=== PATIENT | female | born 1935 | race Caucasian/White ===

== ENCOUNTER → 2017-01-06 | Outpatient (CLI) | payer OTHER ==
--- NOTE | 2017-01-06 12:30 | RAD ---
HISTORY: Preop. Study: PA and lateral chest. Comparison: None. Findings: The trachea is midline. The cardiac silhouette is unremarkable. Left chest Port-A-Cath. The lungs a re clear without focal infiltrate or effusion. Surgical hardware is seen overlying the lower thorac ic/upper lumbar spine. The hardware appears intact. Diffuse osteopenia. Multiple compression fractur es are seen in the visualized spine. No acute osseous abnormality. IMPRESSION: 1. No acute cardiopulmonary disease. Reported By:
[2017-01-06 12:46] LABS: BASOPHILS % (AUTO) 0.5 % (0.2-1.0); EOSINOPHILS # (AUTO) 0.1 x10^3/uL (0.0-0.2); EOSINOPHILS % (AUTO) 1.2 % (0.9-2.9); HEMATOCRIT 30.6 % (36.0-47.0); HEMOGLOBIN 10.4 g/dL (12.0-16.0); LYMPHOCYTES # (AUTO) 1.6 X10^3/uL (1.3-2.9); LYMPHOCYTES % (AUTO) 27.1 % (21.0-51.0); MEAN CORPUSCULAR HEMOGLOBIN 32.5 pg (27.0-34.0); MEAN CORPUSCULAR HGB CONC 33.9 g/dL (33.0-35.0); MONOCYTES # (AUTO) 0.5 x10^3/uL (0.3-0.8); MONOCYTES % (AUTO) 9.1 % (0.0-13.0); NEUTROPHILS # (AUTO) 3.7 x10^3/uL (2.2-4.8); NEUTROPHILS % (AUTO) 62.1 % (42.0-75.0); PLATELET COUNT 363 X10^3/uL (150.0-450.0); RED BLOOD COUNT 3.18 X10^6/uL (3.5-5.4); RED CELL DISTRIBUTION WIDTH 13.3 % (11.6-16.5)
[2017-01-06 12:47] LABS: BILIRUBIN,URINE NEGATIVE (NEGATIVE); BLOOD/HEMOGLOBIN,URINE 4+ (NEGATIVE); GLUCOSE, URINE NEGATIVE (NEGATIVE); KETONES,URINE NEGATIVE (NEGATIVE); LEUKOCYTE ESTERASE ,URINE 1+ (NEGATIVE); NITRITES,URINE NEGATIVE (NEGATIVE); PROTEIN,URINE NEGATIVE (NEGATIVE); UROBILINOGEN,URINE NORMAL (NORMAL)
[2017-01-06 12:54] LABS: ALANINE AMINOTRANSFERASE 20 Units/L (12-78); ALBUMIN 2.1 g/dL (3.4-5.0); ALKALINE PHOSPHATASE 84 Units/L (46-116); ASPARTATE AMINO TRANSFERASE 18 Units/L (15-37); BLOOD UREA NITROGEN 15 mg/dL (7-18); CALCIUM 8.5 mg/dL (8.5-10.1); CARBON DIOXIDE 31.1 mmol/L (21-32); CHLORIDE 100 mmol/L (98-107); CREATININE 0.76 mg/dL (0.55-1.02); GLUCOSE 91 mg/dL (65-99); SODIUM 134 mmol/L (136-145); TOTAL PROTEIN 8.3 g/dL (6.4-8.2); eGFR BLACK RACES > 60 (>60); eGFR NON BLACK RACES > 60 (>60)
[2017-01-06 13:07] LABS: APPEARANCE,URINE CLEAR (CLEAR); COLOR,URINE YELLOW (YELLOW); SQUAMOUS EPITHELIAL CELL,UR RARE /HPF (NEGATIVE)
[2017-01-06 13:08] LABS: AMORPHOUS SEDIMENT,UR TRACE /HPF (NEGATIVE); BACTERIA,URINE NEGATIVE /HPF (NEGATIVE)
== END | disposition home or self-care (01) | DRG 951 ==
LOC: LAB 12:07
PROVIDERS: ATTEND Specialist
DX: Z01.818 Encounter for other preprocedural examination (principal); Z01.810 Encounter for preprocedural cardiovascular examination; Z01.811 Encounter for preprocedural respiratory examination; Z79.899 Other long term (current) drug therapy; Z11.8 Encounter for screening for other infectious and parasitic diseases; B95.7 Other staphylococcus as the cause of diseases classified elsewhere; T84.53XS Infection and inflammatory reaction due to internal right knee prosthesis, sequela
CPT/HCPCS: 36415; 71020; 80053; 81001; 85025; 87641; 93005; 93010

== ENCOUNTER 2017-01-08 10:47 | Inpatient (IN) | payer OTHER ==
[2017-01-08] MEDS ORDERED: D5 LR 1000 ML 1,000 ML IV ONE (11:09)
[2017-01-08 11:42] VITALS: BMI 26.3
[2017-01-08] MEDS ORDERED: MARCAINE/EPINEPHRINE ONE (11:44)
[2017-01-08] MEDS: NS 250 ML IV 250 ML IV ONE ×2 (11:52→12:30)
[2017-01-08] MEDS: VANCOMYCIN HCL 500 MG VIAL ONE ×2 (12:30→13:10)
[2017-01-08] MEDS ORDERED: FENTANYL INJ 250 mcg ONE (12:51)
[2017-01-08] MEDS ORDERED: BACITRACIN IR ONE ×4 (13:10)
[2017-01-08] MEDS ORDERED: NS IRRIGATION IR ONE ×4 (13:10)
[2017-01-08] MEDS ORDERED: VANCOMYCIN HCL 1 GM VIAL ONE (13:34)
[2017-01-08] MEDS ORDERED: DILAUDID INJ ONE ×2 (14:06→14:40)
[2017-01-08] MEDS ORDERED: BENADRYL INJ 50 MG VIAL IVP PRN (14:41)
[2017-01-08] MEDS ORDERED: ZOFRAN INJ 4 MG VIAL IVP PRN (14:41)
[2017-01-08] MEDS ORDERED: PHENERGAN INJ 25 MG IVP PRN (14:41)
[2017-01-08] MEDS: DILAUDID INJ IVP PRN ×2 (14:42→14:52)
[2017-01-08] MEDS ORDERED: NAROPIN 0.75% ONE (14:46)
[2017-01-08] MEDS ORDERED: ROBINUL ONE (15:03)
[2017-01-08] MEDS ORDERED: NEOSTIGMINE INJ ONE (15:03)
[2017-01-08] MEDS ORDERED: ZOFRAN INJ 4 MG VIAL ONE (15:03)
[2017-01-08] MEDS ORDERED: NORCURON INJ 10 MG VIAL ONE (15:03)
[2017-01-08] MEDS ORDERED: QUELICIN (OR ANECTINE) ONE (15:03)
[2017-01-08] MEDS ORDERED: DIPRIVAN VIAL ONE (15:03)
[2017-01-08] MEDS ORDERED: XYLOCAINE 2 % (PLAIN) ONE (15:03)
[2017-01-08] MEDS ORDERED: VERSED ONE (15:03)
[2017-01-08] MEDS: LEVAQUIN PREMIX IV 500 MG 500 MG/100 ML BAG IV SCH (15:36)
[2017-01-08] MEDS: D5 NS 1000 ML 1,000 ML IV SCH (15:36)
[2017-01-08] MEDS ORDERED: MAALOX or MYLANTA PO PRN (19:49)
[2017-01-08] MEDS: VANCOMYCIN HCL 500 MG VIAL 500 MG in NS 100 ML IV + SPIKE MINIBAG* 100 ML IV SCH (20:24)
[2017-01-08] MEDS: BACTROBAN OINT TOP SCH (20:24)
[2017-01-08] MEDS: PERCOCET TAB 5/325 MG PO PRN (22:00)
[2017-01-09] MEDS: D5 NS 1000 ML 1,000 ML IV SCH (05:00)
[2017-01-09 05:54] LABS: BASOPHILS # (AUTO) 0.1 X10^3/uL (0.0-0.1); BASOPHILS % (AUTO) 1.2 % (0.2-1.0); EOSINOPHILS # (AUTO) 0.1 x10^3/uL (0.0-0.2); EOSINOPHILS % (AUTO) 2.4 % (0.9-2.9); HEMATOCRIT 23.5 % (36.0-47.0); HEMOGLOBIN 8.3 g/dL (12.0-16.0); LYMPHOCYTES # (AUTO) 1.4 X10^3/uL (1.3-2.9); MEAN CORPUSCULAR HEMOGLOBIN 33.7 pg (27.0-34.0); MEAN CORPUSCULAR HGB CONC 35.1 g/dL (33.0-35.0); MEAN CORPUSCULAR VOLUME 95.8 fL (80.0-100.0); MEAN PLATELET VOLUME 8.6 fL (7.4-11.0); MONOCYTES # (AUTO) 0.5 x10^3/uL (0.3-0.8); MONOCYTES % (AUTO) 12.1 % (0.0-13.0); NEUTROPHILS # (AUTO) 2.2 x10^3/uL (2.2-4.8); NEUTROPHILS % (AUTO) 52.3 % (42.0-75.0); PLATELET COUNT 286 X10^3/uL (150.0-450.0); RED BLOOD COUNT 2.45 X10^6/uL (3.5-5.4); RED CELL DISTRIBUTION WIDTH 13.5 % (11.6-16.5); WHITE BLOOD COUNT 4.3 X10^3/uL (3.6-10.0)
[2017-01-09 05:59] LABS: BLOOD UREA NITROGEN 12 mg/dL (7-18); CALCIUM 7.4 mg/dL (8.5-10.1); CARBON DIOXIDE 29.1 mmol/L (21-32); CHLORIDE 105 mmol/L (98-107); CREATININE 0.66 mg/dL (0.55-1.02); GLUCOSE 95 mg/dL (65-99); SODIUM 137 mmol/L (136-145); eGFR BLACK RACES > 60 (>60); eGFR NON BLACK RACES > 60 (>60)
[2017-01-09] MEDS: PERCOCET TAB 5/325 MG PO PRN ×4 (08:06→21:13)
[2017-01-09] MEDS: VANCOMYCIN HCL 500 MG VIAL 500 MG in NS 100 ML IV + SPIKE MINIBAG* 100 ML IV SCH ×2 (08:07→21:13)
[2017-01-09] MEDS: LOVENOX INJ 30 MG SYR SC SCH ×2 (08:07→21:15)
[2017-01-09] MEDS: LEVAQUIN PREMIX IV 500 MG 500 MG/100 ML BAG IV SCH (08:07)
[2017-01-09] MEDS ORDERED: PATIENT'S HOME MEDICATION (Potassium Chloride [Klor-Con 10] 10 MEQ) PO SCH (08:15)
[2017-01-09] MEDS ORDERED: PATIENT'S HOME MEDICATION (Memantine Hcl [Namenda] 5 MG) PO SCH (09:00)
[2017-01-09] MEDS ORDERED: PATIENT'S HOME MEDICATION (Cholecalciferol (Vitamin D3) [Vitamin D3] 2,000 UNIT) PO SCH (09:00)
[2017-01-09] MEDS: SYNTHROID 50 mcg TAB PO SCH (10:11)
[2017-01-09] MEDS: VITAMIN D3 PO SCH (10:11)
[2017-01-09] MEDS: LR 1000 ML IV 1,000 ML IV SCH ×2 (10:11→16:25)
[2017-01-09] MEDS: COLACE CAP 100 MG PO SCH ×2 (10:12→21:14)
[2017-01-09] MEDS: ZOLOFT PO SCH (10:12)
[2017-01-09] MEDS: LASIX PO SCH (10:12)
[2017-01-09] MEDS: ARIMIDEX PO SCH (10:12)
[2017-01-09] MEDS: MYSOLINE PO SCH (10:12)
[2017-01-09] MEDS: NexIUM PO SCH ×2 (10:12→21:13)
[2017-01-09] MEDS: NAMENDA TAB 10 MG PO SCH ×2 (10:12→21:14)
[2017-01-09] MEDS: BACTROBAN OINT TOP SCH ×2 (10:19→21:19)
[2017-01-09] MEDS: MICRO K EXTEN CAP 10 MEQ PO SCH ×3 (10:19→21:13)
[2017-01-10] MEDS: PERCOCET TAB 5/325 MG PO PRN ×3 (02:03→21:54)
[2017-01-10] MEDS: LR 1000 ML IV 1,000 ML IV SCH ×3 (03:22→17:29)
[2017-01-10 05:36] LABS: BLOOD UREA NITROGEN 8 mg/dL (7-18); CALCIUM 7.3 mg/dL (8.5-10.1); CARBON DIOXIDE 29.3 mmol/L (21-32); CHLORIDE 107 mmol/L (98-107); CREATININE 0.63 mg/dL (0.55-1.02); GLUCOSE 92 mg/dL (65-99); SODIUM 138 mmol/L (136-145); eGFR BLACK RACES > 60 (>60); eGFR NON BLACK RACES > 60 (>60)
[2017-01-10 05:38] LABS: BASOPHILS % (AUTO) 0.9 % (0.2-1.0); EOSINOPHILS # (AUTO) 0.1 x10^3/uL (0.0-0.2); EOSINOPHILS % (AUTO) 2.7 % (0.9-2.9); HEMATOCRIT 24.4 % (36.0-47.0); HEMOGLOBIN 8.4 g/dL (12.0-16.0); LYMPHOCYTES # (AUTO) 1.2 X10^3/uL (1.3-2.9); MEAN CORPUSCULAR HEMOGLOBIN 33.2 pg (27.0-34.0); MEAN CORPUSCULAR HGB CONC 34.4 g/dL (33.0-35.0); MEAN CORPUSCULAR VOLUME 96.5 fL (80.0-100.0); MEAN PLATELET VOLUME 8.7 fL (7.4-11.0); MONOCYTES # (AUTO) 0.4 x10^3/uL (0.3-0.8); NEUTROPHILS # (AUTO) 2.9 x10^3/uL (2.2-4.8); NEUTROPHILS % (AUTO) 61.4 % (42.0-75.0); PLATELET COUNT 265 X10^3/uL (150.0-450.0); RED BLOOD COUNT 2.53 X10^6/uL (3.5-5.4); RED CELL DISTRIBUTION WIDTH 13.4 % (11.6-16.5); WHITE BLOOD COUNT 4.7 X10^3/uL (3.6-10.0)
[2017-01-10] MEDS: MICRO K EXTEN CAP 10 MEQ PO SCH ×3 (05:42→21:53)
[2017-01-10 08:42] LABS: CREATININE 0.65 mg/dL (0.55-1.02); VANCOMYCIN,TROUGH 11.8 ug/mL (15-20)
[2017-01-10] MEDS: VITAMIN D3 PO SCH (09:50)
[2017-01-10] MEDS: NexIUM PO SCH ×2 (09:51→21:53)
[2017-01-10] MEDS: COLACE CAP 100 MG PO SCH ×2 (09:51→21:53)
[2017-01-10] MEDS: LASIX PO SCH (09:51)
[2017-01-10] MEDS: NAMENDA TAB 10 MG PO SCH ×2 (09:51→21:53)
[2017-01-10] MEDS: SYNTHROID 50 mcg TAB PO SCH (09:51)
[2017-01-10] MEDS: ARIMIDEX PO SCH (09:51)
[2017-01-10] MEDS: MYSOLINE PO SCH (09:51)
[2017-01-10] MEDS: ZOLOFT PO SCH (09:51)
[2017-01-10] MEDS: LEVAQUIN PREMIX IV 500 MG 500 MG/100 ML BAG IV SCH (09:52)
[2017-01-10] MEDS: BACTROBAN OINT TOP SCH (09:58)
[2017-01-10] MEDS: LOVENOX INJ 30 MG SYR SC SCH ×3 (10:13→21:52)
[2017-01-10] MEDS: VANCOMYCIN HCL 500 MG VIAL 500 MG in NS 100 ML IV + SPIKE MINIBAG* 100 ML IV SCH ×2 (10:29→21:52)
[2017-01-10] MEDS: RESTORIL CAP 15 MG PO PRN (23:15)
[2017-01-11] MEDS: LR 1000 ML IV 1,000 ML IV SCH ×5 (05:38→23:15)
[2017-01-11] MEDS: MICRO K EXTEN CAP 10 MEQ PO SCH ×3 (05:38→22:16)
[2017-01-11 05:39] LABS: BLOOD UREA NITROGEN 9 mg/dL (7-18); CALCIUM 7.9 mg/dL (8.5-10.1); CARBON DIOXIDE 30.5 mmol/L (21-32); CHLORIDE 106 mmol/L (98-107); CREATININE 0.69 mg/dL (0.55-1.02); GLUCOSE 83 mg/dL (65-99); SODIUM 139 mmol/L (136-145); eGFR BLACK RACES > 60 (>60); eGFR NON BLACK RACES > 60 (>60)
[2017-01-11 06:08] LABS: BASOPHILS % (AUTO) 0.6 % (0.2-1.0); EOSINOPHILS # (AUTO) 0.2 x10^3/uL (0.0-0.2); EOSINOPHILS % (AUTO) 4.4 % (0.9-2.9); HEMATOCRIT 25.4 % (36.0-47.0); HEMOGLOBIN 8.7 g/dL (12.0-16.0); LYMPHOCYTES % (AUTO) 41.5 % (21.0-51.0); MEAN CORPUSCULAR HEMOGLOBIN 33.1 pg (27.0-34.0); MEAN CORPUSCULAR HGB CONC 34.4 g/dL (33.0-35.0); MEAN CORPUSCULAR VOLUME 96.3 fL (80.0-100.0); MEAN PLATELET VOLUME 9.3 fL (7.4-11.0); MONOCYTES # (AUTO) 0.4 x10^3/uL (0.3-0.8); MONOCYTES % (AUTO) 7.4 % (0.0-13.0); NEUTROPHILS # (AUTO) 2.2 x10^3/uL (2.2-4.8); NEUTROPHILS % (AUTO) 46.1 % (42.0-75.0); PLATELET COUNT 276 X10^3/uL (150.0-450.0); RED BLOOD COUNT 2.64 X10^6/uL (3.5-5.4); RED CELL DISTRIBUTION WIDTH 13.2 % (11.6-16.5); WHITE BLOOD COUNT 4.9 X10^3/uL (3.6-10.0)
[2017-01-11] MEDS: ARIMIDEX PO SCH (09:00)
[2017-01-11] MEDS: COLACE CAP 100 MG PO SCH ×2 (09:00→20:21)
[2017-01-11] MEDS: LASIX PO SCH (09:00)
[2017-01-11] MEDS: LOVENOX INJ 30 MG SYR SC SCH ×2 (09:01→20:22)
[2017-01-11] MEDS: MYSOLINE PO SCH (09:01)
[2017-01-11] MEDS: LEVAQUIN PREMIX IV 500 MG 500 MG/100 ML BAG IV SCH (09:01)
[2017-01-11] MEDS: NAMENDA TAB 10 MG PO SCH ×2 (09:02→20:20)
[2017-01-11] MEDS: VITAMIN D3 PO SCH (09:02)
[2017-01-11] MEDS: NexIUM PO SCH ×2 (09:02→20:21)
[2017-01-11] MEDS: ZOLOFT PO SCH (09:02)
[2017-01-11] MEDS: SYNTHROID 50 mcg TAB PO SCH (09:02)
[2017-01-11 10:36] LABS: CREATININE 0.67 mg/dL (0.55-1.02); VANCOMYCIN,TROUGH 11.7 ug/mL (15-20)
[2017-01-11] MEDS: VANCOMYCIN HCL 500 MG VIAL 500 MG in NS 100 ML IV + SPIKE MINIBAG* 100 ML IV SCH ×2 (10:49→20:21)
--- NOTE | 2017-01-11 12:22 | PCM.PROG ---
Progress Note - Progress Note for Day of Date: 01/11/17 - Subjective Subjective: IS A 81 YO PATIENT OF AND 'S. PATIENT WAS ADMITTED FOR A POLYETHYLENE EXCHANGE AND IV ANTIBIOTICS FOR INFECTION OF HER RIGHT KNEE. ON MORNING ROUNDS, PATIENT WAS LYING IN BED ASLEEP. LUNGS ARE CLEAR ON AUSCULTATION. DRESSING NOTED TO RIGHT KNEE.STAFF REPORTS THAT PATIENT HAS BEEN AMBULATING WITH MINIMAL ASSISTANCE. PATIENT HAS NO COMPLAINTS AT THIS TIME. VITALS THIS AM ARE 98.1, 79, 18, 97, 151/83. CBC WNL EXCEPT HGB 8.7, HCT 25.4. PATIENT WILL BE DISCHARGED FRIDAY, WHEN IV THERAPY IS ARRANGED AND PATIENT HAS TRANSPORTATION TO AND FROM HOSPITAL FOR IV TREATMENT. WE WILL RECHECK LABS AND FOLLOW UP WITH PATIENT IN AM. - Past Medical Family Social History Allergies: Allergies morphine Adverse Reaction (Verified 01/06/17 13:00) oxaprozin [From Daypro] Adverse Reaction (Verified 01/06/17 13:00) Penicillins Adverse Reaction (Verified 01/06/17 13:00) Sulfa (Sulfonamide Antibiotics) [SULFA] Adverse Reaction (Verified 01/06/17 13: 00) - Review of Systems ROS: No change since H&P - Vital Signs and I&O's Vital Signs: Temperature 98.1 F Pulse Rate [Right Brachial] 79 Pulse Rate 63 Respiratory Rate 18 Blood Pressure [Left Arm] 127/65 Blood Pressure [Right Arm] 151/83 Blood Pressure 176/84 O2 Sat by Pulse Oximetry 97 Intake and Output: Intake & Output 01/09/17 01/10/17 01/11/17 01/12/17 11:59 11:59 11:59 11:59 Intake Total 1276 4030 3223 Output Total 6510 1650 Balance -5234 4800 3223 - Physical Exam Oriented: Normal Eyes: Normal Ear: Normal Nose: Normal Throat: Normal Respiratory: Normal Cardiovascular: Normal : Normal Auscultation: Bowel Sounds: Normal Palpation: Normal Tenderness: Normal Skin: Normal, Tender Musculoskeletal: Right, Knee, Tender, Instability Mood Description: Calm Speech Pattern: Clear, Appropriate - Laboratory and Diagnostics Result Diagrams: 01/11/17 03:45 01/11/17 07:43 Labs: 01/08/17 14:20 Knee - Right Gram Stain - Final 01/08/17 14:20 Knee - Right Wound Culture - Preliminary Laboratory WBC 4.9 X10^3/uL (3.6-10.0) 01/11/17 03:45 RBC 2.64 X10^6/uL (3.5-5.4) L 01/11/17 03:45 Hgb 8.7 g/dL (12.0-16.0) L 01/11/17 03:45 Hct 25.4 % (36.0-47.0) L 01/11/17 03:45 MCV 96.3 fL (80.0-100.0) 01/11/17 03:45 MCH 33.1 pg (27.0-34.0) 01/11/17 03:45 MCHC 34.4 g/dL (33.0-35.0) 01/11/17 03:45 RDW 13.2 % (11.6-16.5) 01/11/17 03:45 Plt Count 276 X10^3/uL (150.0-450.0) 01/11/17 03:45 MPV 9.3 fL (7.4-11.0) 01/11/17 03:45 Neut % 46.1 % (42.0-75.0) 01/11/17 03:45 Lymph % 41.5 % (21.0-51.0) 01/11/17 03:45 [place] % 7.4 % (0.0-13.0) 01/11/17 03:45 Eos % 4.4 % (0.9-2.9) H 01/11/17 03:45 Baso % 0.6 % (0.2-1.0) 01/11/17 03:45 Neut # 2.2 x10^3/uL (2.2-4.8) 01/11/17 03:45 Lymph # 2.0 X10^3/uL (1.3-2.9) 01/11/17 03:45 [place] # 0.4 x10^3/uL (0.3-0.8) 01/11/17 03:45 Eos # 0.2 x10^3/uL (0.0-0.2) 01/11/17 03:45 Baso # 0.0 X10^3/uL (0.0-0.1) 01/11/17 03:45 Absolute Nucleated RBC 0.1 /100WBC 01/11/17 03:45 Sodium 139 mmol/L (136-145) 01/11/17 03:45 Corrected Sodium TNP 01/11/17 03:45 Potassium 3.9 mmol/L (3.5-5.1) 01/11/17 03:45 Chloride 106 mmol/L (98-107) 01/11/17 03:45 Carbon Dioxide 30.5 mmol/L (21-32) 01/11/17 03:45 BUN 9 mg/dL (7-18) 01/11/17 03:45 Creatinine 0.67 mg/dL (0.55-1.02) 01/11/17 07:43 Est GFR (MDRD) Af Amer > 60 (>60) 01/11/17 03:45 Est GFR (MDRD) Non-Af > 60 (>60) 01/11/17 03:45 Glucose 83 mg/dL (65-99) 01/11/17 03:45 Calcium 7.9 mg/dL (8.5-10.1) L 01/11/17 03:45 Iron 58 ug/dL (50-175) 01/09/17 04:05 Transferrin 132 mg/dL (202-364) L 01/09/17 04:05 Ferritin 116 ng/mL (8-252) 01/09/17 04:05 Vitamin B12 997 pg/mL (193-986) H 01/09/17 04:05 Folate 15.4 ng/mL (>8.6) 01/09/17 04:05 Vancomycin Trough 11.7 ug/mL (15-20) L 01/11/17 07:43
[2017-01-11] MEDS: PERCOCET TAB 5/325 MG PO PRN ×2 (12:43→23:13)
[2017-01-11] MEDS: RESTORIL CAP 15 MG PO PRN (20:20)
[2017-01-12] MEDS: LR 1000 ML IV 1,000 ML IV SCH ×5 (02:35→20:52)
[2017-01-12 05:44] LABS: ALANINE AMINOTRANSFERASE 18 Units/L (12-78); ALBUMIN 1.6 g/dL (3.4-5.0); ALKALINE PHOSPHATASE 84 Units/L (46-116); ASPARTATE AMINO TRANSFERASE 19 Units/L (15-37); BLOOD UREA NITROGEN 10 mg/dL (7-18); CALCIUM 7.8 mg/dL (8.5-10.1); CARBON DIOXIDE 30.3 mmol/L (21-32); CHLORIDE 106 mmol/L (98-107); COR CA(FOR HYPOALB) 9.7 mg/dL (8.5-10.1); CREATININE 0.74 mg/dL (0.55-1.02); GLUCOSE 84 mg/dL (65-99); SODIUM 139 mmol/L (136-145); TOTAL PROTEIN 6.5 g/dL (6.4-8.2); eGFR BLACK RACES > 60 (>60); eGFR NON BLACK RACES > 60 (>60)
[2017-01-12 05:45] LABS: BASOPHILS % (AUTO) 1.3 % (0.2-1.0); EOSINOPHILS # (AUTO) 0.3 x10^3/uL (0.0-0.2); EOSINOPHILS % (AUTO) 7.8 % (0.9-2.9); HEMATOCRIT 25.1 % (36.0-47.0); HEMOGLOBIN 8.6 g/dL (12.0-16.0); LYMPHOCYTES # (AUTO) 1.3 X10^3/uL (1.3-2.9); LYMPHOCYTES % (AUTO) 38.3 % (21.0-51.0); MEAN CORPUSCULAR HEMOGLOBIN 32.9 pg (27.0-34.0); MEAN CORPUSCULAR HGB CONC 34.4 g/dL (33.0-35.0); MEAN CORPUSCULAR VOLUME 95.8 fL (80.0-100.0); MONOCYTES # (AUTO) 0.3 x10^3/uL (0.3-0.8); MONOCYTES % (AUTO) 9.5 % (0.0-13.0); NEUTROPHILS # (AUTO) 1.4 x10^3/uL (2.2-4.8); NEUTROPHILS % (AUTO) 43.1 % (42.0-75.0); PLATELET COUNT 260 X10^3/uL (150.0-450.0); RED BLOOD COUNT 2.62 X10^6/uL (3.5-5.4); RED CELL DISTRIBUTION WIDTH 13.4 % (11.6-16.5); WHITE BLOOD COUNT 3.3 X10^3/uL (3.6-10.0)
[2017-01-12] MEDS: MICRO K EXTEN CAP 10 MEQ PO SCH ×3 (06:00→21:00)
--- NOTE | 2017-01-12 10:20 | PCM.PROG ---
Progress Note - Progress Note for Day of Date: 01/12/17 - Subjective Subjective: IS A 81 YO PATIENT OF AND 'S. PATIENT WAS ADMITTED FOR A POLYETHYLENE EXCHANGE AND IV ANTIBIOTICS FOR INFECTION OF HER RIGHT KNEE. ON MORNING ROUNDS, PATIENT WAS LYING IN BED ASLEEP. LUNGS ARE CLEAR ON AUSCULTATION.STAFF REPORTS THAT PATIENT HAS BEEN AMBULATING WITH MINIMAL ASSISTANCE. PATIENT HAS NO COMPLAINTS AT THIS TIME. VITALS THIS AM ARE 97.9, 81, 20, 96, 157/80 . CBC WNL EXCEPT HGB 8.6, HCT 25.1. CMP REPORTS ALBUMIN 1.6. WE WILL START ALBUMIN 2 BOTTLES DAILY AND WILL RECHECK LABS AND FOLLOW UP WITH PATIENT IN AM. - Past Medical Family Social History Past Med/Fam/Surg Hx: No changes since H&P Allergies: Allergies morphine Adverse Reaction (Verified 01/06/17 13:00) oxaprozin [From Daypro] Adverse Reaction (Verified 01/06/17 13:00) Penicillins Adverse Reaction (Verified 01/06/17 13:00) Sulfa (Sulfonamide Antibiotics) [SULFA] Adverse Reaction (Verified 01/06/17 13: 00) - Review of Systems ROS: No change since H&P - Vital Signs and I&O's Vital Signs: Temperature 97.9 F Pulse Rate [Right Brachial] 81 Pulse Rate 63 Respiratory Rate 20 Blood Pressure [Left Arm] 127/65 Blood Pressure [Right Arm] 157/80 Blood Pressure 176/84 O2 Sat by Pulse Oximetry 96 Intake and Output: Intake & Output 01/09/17 01/10/17 01/11/17 01/12/17 11:59 11:59 11:59 11:59 Intake Total 1276 4030 3223 2250 Output Total 6510 1650 Balance -5234 2380 3223 2250 - Physical Exam Oriented: Normal Eyes: Normal Ear: Normal Nose: Normal Throat: Normal Respiratory: Normal Cardiovascular: Normal : Normal Auscultation: Bowel Sounds: Normal Palpation: Normal Tenderness: Normal Skin: Normal, Tender Musculoskeletal: Right, Knee, Tender, Instability Mood Description: Calm Speech Pattern: Clear, Appropriate - Laboratory and Diagnostics Result Diagrams: 01/12/17 04:20 01/12/17 04:20 Labs: 01/08/17 14:20 Knee - Right Gram Stain - Final 01/08/17 14:20 Knee - Right Wound Culture - Preliminary Laboratory WBC 3.3 X10^3/uL (3.6-10.0) L 01/12/17 04:20 RBC 2.62 X10^6/uL (3.5-5.4) L 01/12/17 04:20 Hgb 8.6 g/dL (12.0-16.0) L 01/12/17 04:20 Hct 25.1 % (36.0-47.0) L 01/12/17 04:20 MCV 95.8 fL (80.0-100.0) 01/12/17 04:20 MCH 32.9 pg (27.0-34.0) 01/12/17 04:20 MCHC 34.4 g/dL (33.0-35.0) 01/12/17 04:20 RDW 13.4 % (11.6-16.5) 01/12/17 04:20 Plt Count 260 X10^3/uL (150.0-450.0) 01/12/17 04:20 MPV 9.0 fL (7.4-11.0) 01/12/17 04:20 Neut % 43.1 % (42.0-75.0) 01/12/17 04:20 Lymph % 38.3 % (21.0-51.0) 01/12/17 04:20 [place] % 9.5 % (0.0-13.0) 01/12/17 04:20 Eos % 7.8 % (0.9-2.9) H 01/12/17 04:20 Baso % 1.3 % (0.2-1.0) H 01/12/17 04:20 Neut # 1.4 x10^3/uL (2.2-4.8) L 01/12/17 04:20 Lymph # 1.3 X10^3/uL (1.3-2.9) 01/12/17 04:20 [place] # 0.3 x10^3/uL (0.3-0.8) 01/12/17 04:20 Eos # 0.3 x10^3/uL (0.0-0.2) H 01/12/17 04:20 Baso # 0.0 X10^3/uL (0.0-0.1) 01/12/17 04:20 Absolute Nucleated RBC 0.1 /100WBC 01/12/17 04:20 Sodium 139 mmol/L (136-145) 01/12/17 04:20 Corrected Sodium TNP 01/12/17 04:20 Potassium 3.8 mmol/L (3.5-5.1) 01/12/17 04:20 Chloride 106 mmol/L (98-107) 01/12/17 04:20 Carbon Dioxide 30.3 mmol/L (21-32) 01/12/17 04:20 BUN 10 mg/dL (7-18) 01/12/17 04:20 Creatinine 0.74 mg/dL (0.55-1.02) 01/12/17 04:20 Est GFR (MDRD) Af Amer > 60 (>60) 01/12/17 04:20 Est GFR (MDRD) Non-Af > 60 (>60) 01/12/17 04:20 Glucose 84 mg/dL (65-99) 01/12/17 04:20 Calcium 7.8 mg/dL (8.5-10.1) L 01/12/17 04:20 Corrected Calcium 9.7 mg/dL (8.5-10.1) 01/12/17 04:20 Iron 58 ug/dL (50-175) 01/09/17 04:05 Transferrin 132 mg/dL (202-364) L 01/09/17 04:05 Ferritin 116 ng/mL (8-252) 01/09/17 04:05 Total Bilirubin 0.30 mg/dL (0.2-1.0) 01/12/17 04:20 AST 19 Units/L (15-37) 01/12/17 04:20 ALT 18 Units/L (12-78) 01/12/17 04:20 Alkaline Phosphatase 84 Units/L (46-116) 01/12/17 04:20 Total Protein 6.5 g/dL (6.4-8.2) 01/12/17 04:20 Albumin 1.6 g/dL (3.4-5.0) L 01/12/17 04:20 Globulin 4.9 g/dL (2.5-4.5) H 01/12/17 04:20 Albumin/Globulin Ratio 0.3 Ratio (1.1-2.1) L 01/12/17 04:20 Vitamin B12 997 pg/mL (193-986) H 01/09/17 04:05 Folate 15.4 ng/mL (>8.6) 01/09/17 04:05 Vancomycin Trough 11.7 ug/mL (15-20) L 01/11/17 07:43
[2017-01-12] MEDS: LEVAQUIN PREMIX IV 500 MG 500 MG/100 ML BAG IV SCH (10:44)
[2017-01-12] MEDS: VANCOMYCIN HCL 500 MG VIAL 500 MG in NS 100 ML IV + SPIKE MINIBAG* 100 ML IV SCH ×2 (10:44→20:52)
[2017-01-12] MEDS: LOVENOX INJ 30 MG SYR SC SCH ×2 (10:45→20:52)
[2017-01-12] MEDS: COLACE CAP 100 MG PO SCH ×2 (10:46→20:53)
[2017-01-12] MEDS: VITAMIN D3 PO SCH (10:46)
[2017-01-12] MEDS: SYNTHROID 50 mcg TAB PO SCH (10:46)
[2017-01-12] MEDS: LASIX PO SCH (10:46)
[2017-01-12] MEDS: ZOLOFT PO SCH (10:46)
[2017-01-12] MEDS: NAMENDA TAB 10 MG PO SCH ×2 (10:46→20:53)
[2017-01-12] MEDS: MYSOLINE PO SCH (10:46)
[2017-01-12] MEDS: ARIMIDEX PO SCH (10:47)
[2017-01-12] MEDS: NexIUM PO SCH ×2 (10:47→20:56)
[2017-01-12] MEDS: PERCOCET TAB 5/325 MG PO PRN ×2 (10:51→20:56)
[2017-01-12] MEDS: ALBUMIN HUMAN 25%- 100ML 200 ML IV SCH (12:00)
[2017-01-12] MEDS: RESTORIL CAP 15 MG PO PRN (20:53)
[2017-01-13 05:15] LABS: BASOPHILS % (AUTO) 1.2 % (0.2-1.0); EOSINOPHILS # (AUTO) 0.3 x10^3/uL (0.0-0.2); HEMATOCRIT 23.1 % (36.0-47.0); LYMPHOCYTES # (AUTO) 1.3 X10^3/uL (1.3-2.9); LYMPHOCYTES % (AUTO) 42.7 % (21.0-51.0); MEAN CORPUSCULAR HGB CONC 34.5 g/dL (33.0-35.0); MEAN CORPUSCULAR VOLUME 95.8 fL (80.0-100.0); MEAN PLATELET VOLUME 8.6 fL (7.4-11.0); MONOCYTES # (AUTO) 0.3 x10^3/uL (0.3-0.8); NEUTROPHILS # (AUTO) 1.1 x10^3/uL (2.2-4.8); NEUTROPHILS % (AUTO) 37.1 % (42.0-75.0); PLATELET COUNT 253 X10^3/uL (150.0-450.0); RED BLOOD COUNT 2.42 X10^6/uL (3.5-5.4); RED CELL DISTRIBUTION WIDTH 13.5 % (11.6-16.5)
[2017-01-13 05:19] LABS: ALANINE AMINOTRANSFERASE 16 Units/L (12-78); ALBUMIN 2.2 g/dL (3.4-5.0); ALKALINE PHOSPHATASE 72 Units/L (46-116); ASPARTATE AMINO TRANSFERASE 17 Units/L (15-37); BLOOD UREA NITROGEN 8 mg/dL (7-18); CALCIUM 8.1 mg/dL (8.5-10.1); CARBON DIOXIDE 30.9 mmol/L (21-32); CHLORIDE 103 mmol/L (98-107); COR CA(FOR HYPOALB) 9.5 mg/dL (8.5-10.1); CREATININE 0.67 mg/dL (0.55-1.02); GLUCOSE 82 mg/dL (65-99); SODIUM 139 mmol/L (136-145); TOTAL PROTEIN 6.5 g/dL (6.4-8.2); eGFR BLACK RACES > 60 (>60); eGFR NON BLACK RACES > 60 (>60)
[2017-01-13] MEDS: MICRO K EXTEN CAP 10 MEQ PO SCH ×2 (06:13→14:23)
[2017-01-13] MEDS: LR 1000 ML IV 1,000 ML IV SCH (06:13)
[2017-01-13 08:16] LABS: CREATININE 0.8 mg/dL (0.55-1.02); VANCOMYCIN,TROUGH 14.2 ug/mL (15-20)
[2017-01-13] MEDS: VANCOMYCIN HCL 500 MG VIAL 500 MG in NS 100 ML IV + SPIKE MINIBAG* 100 ML IV SCH ×2 (08:52→17:09)
[2017-01-13] MEDS: LEVAQUIN PREMIX IV 500 MG 500 MG/100 ML BAG IV SCH (08:53)
[2017-01-13] MEDS: LOVENOX INJ 30 MG SYR SC SCH (08:53)
[2017-01-13] MEDS: SYNTHROID 50 mcg TAB PO SCH (08:54)
[2017-01-13] MEDS: ZOLOFT PO SCH (08:54)
[2017-01-13] MEDS: ARIMIDEX PO SCH (08:54)
[2017-01-13] MEDS: MYSOLINE PO SCH (08:54)
[2017-01-13] MEDS: NexIUM PO SCH (08:54)
[2017-01-13] MEDS: VITAMIN D3 PO SCH (08:54)
[2017-01-13] MEDS: NAMENDA TAB 10 MG PO SCH (08:54)
[2017-01-13] MEDS: COLACE CAP 100 MG PO SCH (08:55)
[2017-01-13] MEDS: LASIX PO SCH (08:55)
[2017-01-13] MEDS: ALBUMIN HUMAN 25%- 100ML 200 ML IV SCH (14:24)
[2017-01-13] MEDS: PERCOCET TAB 5/325 MG PO PRN ×2 (14:42→20:18)
[2017-01-13 18:33] VITALS: BP 150/72
== END 2017-01-13 20:40 | disposition home health service (06) | DRG 468 ==
LOC: MED/SURG 10:47
PROVIDERS: ADMIT Specialist; ATTEND Obstetrics & Gynecology Obstetrics
PROC: 0JDN0ZZ Extraction of Right Lower Leg Subcutaneous Tissue and Fascia, Open Approach (ICD-10-PCS; 2017-01-08)
PROC: 0SRC0JA Replacement of Right Knee Joint with Synthetic Substitute, Uncemented, Open Approach (ICD-10-PCS; principal; 2017-01-08 11:15)
PROC: 0SPC0JZ Removal of Synthetic Substitute from Right Knee Joint, Open Approach (ICD-10-PCS; 2017-01-08 11:15)
DX: T84.53XA Infection and inflammatory reaction due to internal right knee prosthesis, initial encounter (principal); M54.5 Low back pain; E87.6 Hypokalemia; K21.9 Gastro-esophageal reflux disease without esophagitis; K59.9 Functional intestinal disorder, unspecified; E03.8 Other specified hypothyroidism; B96.89 Other specified bacterial agents as the cause of diseases classified elsewhere; Z85.3 Personal history of malignant neoplasm of breast
CPT/HCPCS: 36415; 64447; 80048; 80053; 80202; 82565; 82607; 82728; 82746; 83540; 84466; 85025; 87070; 87075; 87205; 94762; 97535; 99100; A4216; A4222; P9047; S0020; S0170; J0330; J1170; J1650; J1956; J2001; J2250; J2405; J2710; J3010; J3370; J3490; J7120